=== PATIENT | female | born 1960 | race Caucasian/White ===

== ENCOUNTER → 2017-11-04 15:00 | Outpatient (CLI) | payer OTHER, SELFPAY ==
--- NOTE | 2017-11-04 | DI.MG.S_ITS ---
BILATERAL DIGITAL SCREENING MAMMOGRAM 3D/2D WITH CAD WITH AUGMENTATION: 11/04/2017 CLINICAL: Routine screening. Comparison is made to exams dated: 09/07/2016 mammogram, 08/27/2016 mammogram, and 06/19/2015 mammogram - [facility]. The tissue of both breasts is heterogeneously dense. This may lower the sensitivity of mammography. Current study was also evaluated with a Computer Aided Detection (CAD) system. There are biopsy clips in the left breast. Bilateral breast implants appear stable. No significant masses, calcifications, or other findings are seen in either breast. There has been no significant interval change. IMPRESSION: BENIGN There is no mammographic evidence of malignancy. A 1 year screening mammogram is recommended. This exam was interpreted at Station ID: [id number]. NOTE: For mammograms, a report in lay terms will be sent to the patient. Approximately 15% of breast malignancies will not be visualized mammographically. In the management of a palpable breast mass, a negative mammogram must not discourage biopsy of a clinically suspicious lesion. Electronically Signed By: Ozzy Gao M.D. ecl/:11/06/2017 23:03:50 letter sent: Normal Exam ACR BI-RADS Category 2: Benign Finding(s) 3342F
--- NOTE | 2017-11-04 15:02 | DI.US.S_ITS ---
PROCEDURE: US THYROID INDICATIONS: 1Y Repeat exam TECHNIQUE: Real-time scanning was performed of the thyroid gland, with image documentation. COMPARISON: [facility], US, THYROID, 06/21/2017, 16:09. FINDINGS: Right: Thyroid lobe measures 5.8 x 1.8 x 1.5 cm, and is homogeneous in echotexture. Left: Thyroid lobe measures 4.6 x 1.4 x 1.5 cm, and is homogenous in echotexture. Isthmus: 2.0 mm thick. Nodule number: 1 Location: Right superior Size: Unchanged at 0.5 x 0.3 x 0.4 cm. Composition: Cystic Echogenicity: Anechoic Shape: wider than tall. Margins: Smooth Echogenic foci: None Total points: 0 ACR TI-RADS category: Benign Nodule number: 2 Location: Mid left Size: Unchanged at 0.8 x 0.3 x 0.4 cm. Composition: Cystic Echogenicity: Anechoic Shape: wider than tall. 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 ACR TI-RADS definitions and recommendations: TI-RADS 1 (benign): 0 points. FNA not needed. TI-RADS 2 (not suspicious): 2 points. FNA not needed. TI-RADS 3 (mildly suspicious): 3 points. * FNA if 2.5 cm or larger, follow up if 1.5 cm or larger (at 1, 3, and 5 years). TI-RADS 4 (moderately suspicious): 4-6 points. * FNA if 1.5 cm or larger, follow up if 1 cm or larger (at 1, 2, 3, and 5 years). TI-RADS 5 (highly suspicious): 7 points or more. * FNA if 1 cm or larger, follow up if 0.5 cm or larger (every year for 5 years). Dictated by: Ty MCGILL Interpreted: Harsha Cole MD on 11/04/2017 at 16:25 Approved by: Harsha Cole M.D. on 11/04/2017 at 16:34
== END ==
PROVIDERS: Family Provider Physician Assistant; PCP Physician Assistant; Visit Provider Physician Assistant
DX: Z12.31 Encounter for screening mammogram for malignant neoplasm of breast (principal); E04.2 Nontoxic multinodular goiter
CPT/HCPCS: 76536; 77063; 77067

== ENCOUNTER → 2018-06-09 16:22 | Outpatient (CLI) | payer OTHER, SELFPAY ==
[2018-06-09 17:04] LABS: Alanine Aminotransferase 32 IU/L (9-52); Albumin 4.6 g/dL (3.5-5.0); Albumin Globulin Ratio 1.9 (1.0-2.8); Alkaline Phosphatase 40 U/L (38-126); Aspartate Aminotransferase 26 IU/L (14-36); Bilirubin Total 0.9 mg/dL (0.2-1.3); Blood Urea Nitrogen 20 mg/dL (7-17); Calcium 9.5 mg/dL (8.4-10.2); Carbon Dioxide 28 mmol/L (22-32); Chloride 101 mmol/L (98-107); Cholesterol 185 mg/dL (140-199); Estimated Glomerular Filt Rate > 60.0 mL/min (>60); Globulin 2.4 g/dL (1.7-4.1); Glucose 96 mg/dL (70-100); HDL Cholesterol 86 mg/dL (40-60); HEMOLYSIS 19 (0-50); LDL Cholesterol Calculated 60 mg/dL (<100); Potassium 4.1 mmol/L (3.4-5.1); Sodium 138 mmol/L (137-145); Triglycerides 196 mg/dL (35-150)
[2018-06-09 17:34] LABS: Thyroid Stimulating Hormone 2.36 uIU/mL (0.47-4.68)
== END ==
PROVIDERS: Family Provider Physician Assistant; PCP Physician Assistant; Visit Provider Physician Assistant
DX: R94.6 Abnormal results of thyroid function studies (principal); Z13.220 Encounter for screening for lipoid disorders; Z13.6 Encounter for screening for cardiovascular disorders
CPT/HCPCS: 36415; 80053; 80061; 84443

== ENCOUNTER → 2018-07-10 10:43 | Outpatient (CLI) | payer OTHER, SELFPAY ==
[2018-07-10 12:59] LABS: Vitamin D 25 Hydroxy (D3) 39.7 ng/mL (30.0-100.0)
[2018-07-10 13:04] LABS: Free T3, Triiodothyronine Free 3.78 pg/mL (2.77-5.27); Free T4, Direct Thyroxine 0.87 ng/dL (0.78-2.19); T4 Total Thyroxine 5.69 ug/dL (5.5-11.0); T7 (Free Thyroxine Index) 1.98 (1.65-3.89); Triiodothryronine T3 Uptake 34.8 % (23.5-40.5)
[2018-07-10 13:17] LABS: Thyroid Stimulating Hormone 1.23 uIU/mL (0.47-4.68)
[2018-07-10 13:20] LABS: Ferritin 19.9 ng/mL (11.1-264)
[2018-07-10 13:33] LABS: Vitamin B12 517 pg/mL (239-931)
[2018-07-12 13:12] LABS: RPR Screen Nonreactive (Nonreactive)
[2018-07-12 15:52] LABS: Triiodothyronine T3 Total 79 ng/dL (76-181)
== END ==
PROVIDERS: Family Provider Physician Assistant; PCP Physician Assistant; Visit Provider Internal Medicine
DX: R41.3 Other amnesia (principal); L65.9 Nonscarring hair loss, unspecified
CPT/HCPCS: 36415; 82306; 82607; 82728; 84436; 84439; 84443; 84479; 84480; 84481; 86592

== ENCOUNTER → 2019-01-16 16:07 | Outpatient (CLI) | payer OTHER, SELFPAY ==
--- NOTE | 2019-01-16 | DI.MG.S_ITS ---
BILATERAL DIGITAL SCREENING MAMMOGRAM 3D/2D WITH CAD WITH AUGMENTATION: 01/16/2019 CLINICAL: Routine screening. Comparison is made to exams dated: 11/04/2017 mammogram, 08/27/2016 mammogram, 06/19/2015 mammogram, 03/20/2014 mammogram, 07/05/2013 mammogram, and 06/07/2012 mammogram - [facility]. The tissue of both breasts is heterogeneously dense. This may lower the sensitivity of mammography. Current study was also evaluated with a Computer Aided Detection (CAD) system. Bilateral breast implants are stable. There are biopsy clips in the left breast. No significant masses, calcifications, or other findings are seen in either breast. There has been no significant interval change. IMPRESSION: NEGATIVE There is no mammographic evidence of malignancy. A 1 year screening mammogram is recommended. This exam was interpreted at Station ID: [id number]. NOTE: For mammograms, a report in lay terms will be sent to the patient. Approximately 15% of breast malignancies will not be visualized mammographically. In the management of a palpable breast mass, a negative mammogram must not discourage biopsy of a clinically suspicious lesion. Electronically Signed By: Morro schaefer/kristine:01/16/2019 18:56:42 letter sent: Normal Exam ACR BI-RADS Category 1: Negative 3341F
== END ==
PROVIDERS: PCP Physician Assistant; Visit Provider Physician Assistant
DX: Z12.31 Encounter for screening mammogram for malignant neoplasm of breast (principal)
CPT/HCPCS: 77063; 77067

== ENCOUNTER → 2020-03-10 19:49 | Outpatient (ROUT) | payer BC, SELFPAY ==
[2020-03-10 20:04] LABS: Add Manual Diff / Slide Review NO; Basophils Absolute Auto 0 /uL (0-100); Basophils Percent Auto 0.7 % (0-2); Eosinophils Absolute Auto 0 /uL (0-450); Eosinophils Percent Auto 0.5 % (2-4); Hematocrit 40.4 % (36-46); Hemoglobin 13.2 g/dL (12.0-16.0); Lymphocytes Absolute Auto 1900 /uL (1100-4500); Mean Corpuscular HGB Conc 32.7 % (30-36); Mean Corpuscular Hemoglobin 32.3 PG (26-34); Mean Corpuscular Volume 98.8 fL (80-100); Monocytes Absolute Auto 600 /uL (0-900); Monocytes Percent Auto 10.4 % (3-14); Neutrophils Absolute Auto 3600 /uL (1500-7000); Neutrophils Percent Auto 57.4 % (50-75); Platelet Count 210 X10^3/uL (150-400); Red Blood Cell Count 4.09 X10^6/uL (4.0-5.2); Red Cell Distribution Width 12.4 % (11.6-14.8); White Blood Cell Count 6.2 X10^3/uL (4.5-11.0)
[2020-03-10 20:05] LABS: HEMOLYSIS < 15 (0-50); Iron 77 ug/dL (37-170)
[2020-03-10 20:17] LABS: Percent Iron Saturation 23 % (15-50); Total Iron Binding Capacity 340 ug/dL (265-497); Transferrin 279 mg/dL (206-381)
[2020-03-10 20:42] LABS: Ferritin 29 ng/mL (11-264)
== END ==
PROVIDERS: PCP Physician Assistant; Visit Provider Internal Medicine
DX: E61.1 Iron deficiency (principal)
CPT/HCPCS: 82728; 83540; 83550; 85025

== ENCOUNTER → 2020-03-13 16:20 | Outpatient (CLI) | payer BC, SELFPAY ==
--- NOTE | 2020-03-13 | DI.MG.S_ITS ---
BILATERAL DIGITAL SCREENING MAMMOGRAM 3D/2D WITH CAD WITH AUGMENTATION: 03/13/2020 CLINICAL: Routine screening. Comparison is made to exams dated: 01/16/2019 mammogram, 11/04/2017 mammogram, and 08/27/2016 mammogram - [facility]. The tissue of both breasts is heterogeneously dense. This may lower the sensitivity of mammography. Current study was also evaluated with a Computer Aided Detection (CAD) system. Bilateral breast implants are stable. There are biopsy clips in the left breast. No significant masses, calcifications, or other findings are seen in either breast. There has been no significant interval change. IMPRESSION: NEGATIVE There is no mammographic evidence of malignancy. A 1 year screening mammogram is recommended. This exam was interpreted at Station ID: [id number]. NOTE: For mammograms, a report in lay terms will be sent to the patient. Approximately 15% of breast malignancies will not be visualized mammographically. In the management of a palpable breast mass, a negative mammogram must not discourage biopsy of a clinically suspicious lesion. Electronically Signed By: Alvin Kolb acr/penrad:03/13/2020 17:13:42 letter sent: Normal Exam ACR BI-RADS Category 1: Negative 3341F
== END ==
PROVIDERS: PCP Internal Medicine; Referring Provider Internal Medicine; Visit Provider Internal Medicine
DX: Z12.31 Encounter for screening mammogram for malignant neoplasm of breast (principal)
CPT/HCPCS: 77063; 77067

== ENCOUNTER → 2020-07-12 12:21 | Outpatient (CLI) | payer BC, SELFPAY ==
[2020-07-12 12:57] LABS: Hematocrit 39.8 % (36-46); Hemoglobin 13.5 g/dL (12.0-16.0); Mean Corpuscular HGB Conc 33.8 % (30-36); Mean Corpuscular Hemoglobin 33.2 PG (26-34); Mean Corpuscular Volume 98.3 fL (80-100); Platelet Count 210 X10^3/uL (150-400); Red Blood Cell Count 4.05 X10^6/uL (4.0-5.2); Red Cell Distribution Width 12.7 % (11.6-14.8); White Blood Cell Count 5.7 X10^3/uL (4.5-11.0)
[2020-07-12 13:08] LABS: Alanine Aminotransferase 18 IU/L (<35); Albumin 4.6 g/dL (3.5-5.0); Albumin Globulin Ratio 1.6 (1.0-2.8); Alkaline Phosphatase 58 U/L (38-126); Aspartate Aminotransferase 28 IU/L (14-36); BUN Creatinine Ratio 21.1 (6-22); Bilirubin Total 0.9 mg/dL (0.2-1.3); Blood Urea Nitrogen 16 mg/dL (7-17); Calcium 9.7 mg/dL (8.4-10.2); Carbon Dioxide 27 mmol/L (22-32); Chloride 104 mmol/L (98-107); Cholesterol 212 mg/dL (140-199); Estimated Glomerular Filt Rate > 60.0 mL/min (>60); Globulin 2.8 g/dL (1.7-4.1); Glucose 102 mg/dL (80-110); HDL Cholesterol 84 mg/dL (40-60); HEMOLYSIS < 15 (0-50); LDL Cholesterol Calculated 113 mg/dL (<100); Potassium 4.3 mmol/L (3.4-5.1); Sodium 139 mmol/L (137-145); Total Protein 7.4 g/dL (6.3-8.2); Triglycerides 73 mg/dL (35-150)
[2020-07-12 13:25] LABS: Free T4, Direct Thyroxine 0.83 ng/dL (0.78-2.19)
[2020-07-12 13:39] LABS: Thyroid Stimulating Hormone 1.19 uIU/mL (0.47-4.68)
[2020-07-12 13:56] LABS: Vitamin B12 849 pg/mL (239-931)
[2020-07-12 15:38] LABS: Vitamin D 25 Hydroxy (D3) 50.6 ng/mL (30.0-100.0)
== END ==
PROVIDERS: PCP Nurse Practitioner Family; Referring Provider Nurse Practitioner Family; Visit Provider Nurse Practitioner Family
DX: R41.3 Other amnesia (principal); Z13.6 Encounter for screening for cardiovascular disorders; E55.9 Vitamin D deficiency, unspecified
CPT/HCPCS: 36415; 80053; 80061; 82306; 82607; 84439; 84443; 85027

== ENCOUNTER → 2021-01-21 15:24 | Outpatient (CLI) | payer BC, SELFPAY ==
--- NOTE | 2021-01-21 15:26 | DI.RAD.S_ITS ---
PROCEDURE: XR PELVIS 1-2V INDICATIONS: pubic bone left side pain TECHNIQUE: 1 view(s) of the pelvis acquired. COMPARISON: None. FINDINGS: Bones: No fractures or dislocations. No suspicious bony lesions. Soft tissues: Visualized bowel gas pattern is normal. No suspicious soft tissue calcifications. IMPRESSION: No evidence acute bony abnormality of the pelvis. If clinical suspicion and/or symptoms persist, further assessment with repeat plain films, or advanced imaging (e.g., CT, MRI, or bone scan) may be helpful for further assessment. Dictated by: Sai Morgan M.D. on 01/21/2021 at 16:03 Approved by: Sai Morgan M.D. on 01/21/2021 at 16:03
[2021-01-21 17:11] LABS: Hematocrit 40.4 % (36-46); Hemoglobin 13.4 g/dL (12.0-16.0); Mean Corpuscular HGB Conc 33.2 % (30-36); Mean Corpuscular Hemoglobin 32.7 PG (26-34); Mean Corpuscular Volume 98.4 fL (80-100); Platelet Count 220 X10^3/uL (150-400); Red Cell Distribution Width 12.9 % (11.6-14.8); White Blood Cell Count 5.9 X10^3/uL (4.5-11.0)
[2021-01-21 17:36] LABS: Alanine Aminotransferase 19 IU/L (<35); Albumin 4.6 g/dL (3.5-5.0); Albumin Globulin Ratio 1.6 (1.0-2.8); Alkaline Phosphatase 53 U/L (38-126); Aspartate Aminotransferase 26 IU/L (14-36); BUN Creatinine Ratio 18.8 (6-22); Bilirubin Total 0.9 mg/dL (0.2-1.3); Blood Urea Nitrogen 16 mg/dL (7-17); Calcium 9.4 mg/dL (8.4-10.2); Carbon Dioxide 29 mmol/L (22-32); Chloride 103 mmol/L (98-107); Estimated Glomerular Filt Rate > 60.0 mL/min (>60); Globulin 2.8 g/dL (1.7-4.1); Glucose 98 mg/dL (80-110); HEMOLYSIS < 15 (0-50); Potassium 3.9 mmol/L (3.4-5.1); Sodium 141 mmol/L (137-145); Total Protein 7.4 g/dL (6.3-8.2)
[2021-01-21 18:35] LABS: Free T4, Direct Thyroxine 0.82 ng/dL (0.78-2.19)
[2021-01-21 18:49] LABS: Thyroid Stimulating Hormone 1.94 uIU/mL (0.47-4.68)
== END ==
PROVIDERS: PCP Nurse Practitioner Family; Referring Provider Nurse Practitioner Family; Visit Provider Nurse Practitioner Family
DX: M89.9 Disorder of bone, unspecified (principal); L65.9 Nonscarring hair loss, unspecified; R63.5 Abnormal weight gain; R94.6 Abnormal results of thyroid function studies
CPT/HCPCS: 36415; 72170; 80053; 84439; 84443; 85027

== ENCOUNTER → 2021-07-31 10:57 | Outpatient (CLI) | payer BC, SELFPAY ==
--- NOTE | 2021-07-31 10:58 | DI.US.S_ITS ---
PROCEDURE: US PELVIC COMPLETE INDICATIONS: PELVIC AND PERINEAL PAIN TECHNIQUE: Real-time scanning was performed of the pelvic organs, with image documentation. Additional endovaginal scanning was necessary due to incomplete visualization of the adnexal and endometrial structures by transabdominal scanning. COMPARISON: None. FINDINGS: Uterus: Uterus is anteverted and normal in size at 8.6 x 4.7 x 3.9 cm. The myometrium is heterogeneous with multiple areas of calcification in the cervix and lower uterine segment. The endometrium measures 6.3 mm combined thickness. Ovaries: The right ovary measures 1.8 x 1.6 x 1.2 cm. Right ovary is normal sonographic appearance. The left ovary is not visualized and cannot be evaluated. Other: No pathologic free abdominal or pelvic fluid. IMPRESSION: 1. Heterogeneous uterus with calcifications in the cervix and lower uterine segment. Recommend correlation with physical examination of the cervix and if clinically indicated MRI of the pelvis for additional evaluation. 2. Right ovary sonographically normal. 3. Left ovary not visualized and cannot be evaluated. Dictated by: Janice Hannon MD, PhD on 07/31/2021 at 14:08 Approved by: Janice Hannon MD, PhD on 07/31/2021 at 14:24
== END ==
PROVIDERS: PCP Nurse Practitioner Family; Referring Provider Obstetrics & Gynecology; Visit Provider Obstetrics & Gynecology
DX: R10.2 Pelvic and perineal pain (principal)
CPT/HCPCS: 76856

== ENCOUNTER → 2021-12-26 09:54 | Outpatient (CLI) | payer BC, SELFPAY ==
--- NOTE | 2021-12-26 | DI.MG.S_ITS ---
BILATERAL DIGITAL SCREENING MAMMOGRAM 3D/2D WITH CAD WITH AUGMENTATION: 12/26/2021 CLINICAL: Patient presents for routine screening. S/P bilateral augmentation. Comparison is made to exams dated: 03/13/2020 mammogram, 01/16/2019 mammogram, and 11/04/2017 mammogram - [facility]. Both breasts are heterogeneously dense, which may obscure small masses (category c / 51-75% glandular tissue). Current study was also evaluated with a Computer Aided Detection (CAD) system. Bilateral breast implants are stable. There are biopsy clips in the left breast. No significant masses, calcifications, or other findings are seen in either breast. There has been no significant interval change. IMPRESSION: NEGATIVE There is no mammographic evidence of malignancy. A 1 year screening mammogram is recommended. Based on the Tyrer Cuzick model (a risk assessment model) the patient's lifetime risk is 10.7% and her 10 year risk is 4.8%. According to the ACR, ACS, and NCCN guidelines, an annual breast MRI exam along with mammogram is recommended if the patient's lifetime risk is 20% or greater. This exam was interpreted at Station ID: [id number]. NOTE: For mammograms, a report in lay terms will be sent to the patient. Approximately 15% of breast malignancies will not be visualized mammographically. In the management of a palpable breast mass, a negative mammogram must not discourage biopsy of a clinically suspicious lesion. Electronically Signed By: Eliezer romero/kristine:12/28/2021 08:26:20 letter sent: Normal Exam ACR BI-RADS Category 1: Negative 3341F
== END ==
PROVIDERS: PCP Nurse Practitioner Family; Referring Provider Nurse Practitioner Family; Visit Provider Nurse Practitioner Family
DX: Z12.31 Encounter for screening mammogram for malignant neoplasm of breast (principal); Z98.82 Breast implant status
CPT/HCPCS: 77063; 77067

== ENCOUNTER 2022-06-02 16:27 | Emergency (ER) | payer BC, SELFPAY ==
[2022-06-02] VITALS (12 sets, daily range): BP systolic 133–182; BP diastolic 68–92; PULSE 52–71; RESP 12–31; TEMP 37; O2SAT 96–100; BMI 24.2
--- NOTE | 2022-06-02 16:54 | DI.RAD.S_ITS ---
PROCEDURE: XR CHEST 1V INDICATIONS: chest pain TECHNIQUE: One view of the chest was acquired. COMPARISON: [facility], , CHEST 2 VIEW, 08/08/2015, 4:26. FINDINGS: Surgical changes and devices: None. Lungs and pleura: Lungs are clear. No pleural effusions or pneumothorax. Mediastinum: Mediastinal contours appear normal. Heart size is normal. Bones and chest wall: No suspicious bony lesions. Overlying soft tissues appear unremarkable. IMPRESSION: No acute cardiopulmonary abnormality. Dictated by: Alvin Kolb M.D. on 06/02/2022 at 17:45 Approved by: Alvin Kolb M.D. on 06/02/2022 at 17:45
[2022-06-02 17:24] LABS: INR 0.9 (0.9-1.3); Prothrombin Time 10.6 SECONDS (10.1-12.7)
[2022-06-02 17:26] LABS: Add Manual Diff / Slide Review NO; Basophils Absolute Auto 100 /uL (0-100); Basophils Percent Auto 0.7 % (0-2); Eosinophils Absolute Auto 100 /uL (0-450); Eosinophils Percent Auto 1.3 % (2-4); Hemoglobin 13.4 g/dL (12.0-16.0); Lymphocytes Absolute Auto 1900 /uL (1100-4500); Lymphocytes Percent Auto 26.3 % (25-40); Mean Corpuscular HGB Conc 33.6 % (30-36); Mean Corpuscular Hemoglobin 33.5 PG (26-34); Mean Corpuscular Volume 99.6 fL (80-100); Monocytes Absolute Auto 800 /uL (0-900); Monocytes Percent Auto 11.1 % (3-14); Neutrophils Absolute Auto 4400 /uL (1500-7000); Neutrophils Percent Auto 60.6 % (50-75); Platelet Count 206 X10^3/uL (150-400); Red Blood Cell Count 4.01 X10^6/uL (4.0-5.2); White Blood Cell Count 7.3 X10^3/uL (4.5-11.0)
[2022-06-02 17:27] LABS: PTT Partial Thromboplastin Tim 28 SECONDS (26-36)
[2022-06-02 17:32] LABS: Alanine Aminotransferase 22 IU/L (<35); Albumin 4.6 g/dL (3.5-5.0); Albumin Globulin Ratio 1.5 (1.0-2.8); Alkaline Phosphatase 33 U/L (38-126); Aspartate Aminotransferase 25 IU/L (14-36); Blood Urea Nitrogen 20 mg/dL (7-17); Carbon Dioxide 28 mmol/L (22-32); Chloride 101 mmol/L (98-107); Creatine Kinase 89 U/L (30-135); Estimated Glomerular Filt Rate > 60 mL/min (>60); Glucose 114 mg/dL (80-110); HEMOLYSIS < 15 (0-50); Lipase 74 U/L (23-300); Potassium 3.6 mmol/L (3.4-5.1); Sodium 136 mmol/L (137-145); Total Protein 7.6 g/dL (6.3-8.2)
[2022-06-02 17:43] LABS: Troponin I < 0.012 ng/mL (0.01-0.034)
--- NOTE | 2022-06-02 17:50 | ED_ITS ---
HPI - Chest Pain <Brianna Mcginnis PA-C - Last Filed: 06/02/22 19:55> General Chief Complaint: Chest Pain Stated Complaint: PAIN FRONT TO BACK Time Seen by Provider: 06/02/22 17:22 Source: patient Mode of arrival: Family Vehicle Limitations: no limitations History of Present Illness HPI narrative: 61-year-old female history of postmenopausal bleeding, seen by sde presents with concern for pain radiating from her upper flank/ back to her front on the right side. Patient states that yesterday morning around the time she woke up she noticed some pain which she thought at 1st was on the left side of her neck and then throughout the day she noticed pain at the base of her scapula on the right side, but did not continue to have neck discomfort. She states that this pain radiates from the scapula through the front of her chest towards her belly. She states it is a constant pain she is difficulty describing it but says that it is worse with certain movements and it makes her catch her breath. She feels like it has been hard to breathe a little bit at times because of the pain. She has not tried taking anything at home for the pain. She denies any history of similar. She states she has not done any different physical activities, lifting or had any other recent illness, change in routine or other symptoms. She denies chest pain, persistent shortness of breath, weight gain, dysuria, diarrhea or constipation, abdominal pain, fevers, chills or any other symptoms. Related Data Home Medications Medication Instructions Recorded Confirmed cholecalciferol (vitamin D3) 125 125 mcg PO DAILY 06/25/20 05/24/22 mcg (5,000 unit) capsule multivitamin 1 tab PO DAILY 06/25/20 05/24/22 Previous Rx's Medication Instructions Recorded lidocaine HCl 2 % mucosal solution 1 applic mucous membrane TID PRN 01/06/21 (Lidocaine Viscous) pain #100 mL valacyclovir 1 gram tablet 1,000 mg PO DAILY #90 tabs 01/06/21 valacyclovir 500 mg tablet 500 mg PO TID #60 tabs 01/06/21 estradiol 0.5 mg tablet 0.5 mg PO DAILY menopause #30 tabs 04/09/21 progesterone micronized 100 mg 100 mg PO QAM menopause 30 days 04/09/21 capsule #30 caps baclofen 10 mg tablet 10 mg PO TID muscle spasm 10 days 06/02/22 #30 tabs Allergies Allergy/AdvReac Type Severity Reaction Status Date / Time morphine [MORPHINE] Allergy Severe A STREAK Verified 06/02/22 16:55 GOING UP MY ARM WHERE THEY INJECTED ME SULFA Allergy Mild ITCHY RASH Uncoded 06/02/22 16:55 ALL OVER BODY Review of Systems <Brianna Mcginnis PA-C - Last Filed: 06/02/22 19:55> Review of Systems Narrative: See HPI Patient History <Brianna Mcginnis PA-C - Last Filed: 06/02/22 19:55> Medical History Depression (2018) Genital herpes Hair loss Memory loss (2018) Menopause Neck muscle strain (04/2020) Pubic bone pain Vitamin D deficiency Surgical History History of breast augmentation History of third molar tooth extraction Status post delivery Family History Brother Hypertension Brother Hypertension Father Heart disease Mother Lung cancer Smoker Social History Smoking Status: Never smoker second hand exposure: No alcohol intake: current (a glass of red wine about 5 times a week.) substance use type: does not use Smoking Status: Never smoker alcohol intake frequency: 0-2 drinks per day Alcohol type: wine Substance Use Type: does not use Exam <Brianna Mcginnis PA-C - Last Filed: 06/02/22 19:55> Narrative Exam Narrative: GENERAL: 61 year old patient appears stated age. Well-developed patient, in mild distress, slightly anxious, uncomfortable appearing. HEAD: Atraumatic. Normocephalic. EYES: Pupils equal round and reactive. Extraocular motions intact. No scleral icterus. No injection or drainage. ENT: Nose without bleeding, purulent drainage. Throat without erythema, tonsillar hypertrophy or exudate. Airway patent. NECK: Trachea midline. Non tender CARDIOVASCULAR: Regular rate and rhythm without murmurs, gallops, or rubs. RESPIRATORY: Clear to auscultation. Breath sounds equal bilaterally. No wheezes, rales, or rhonchi. GASTROINTESTINAL: Abdomen soft, non-tender, nondistended, negative Strauss's sign, negative McBurney's point tenderness, negative Rovsing. EXTREMITIES: No edema or joint tenderness. BACK: Patient does have tenderness inferior to the scapula, no CVA tenderness noted however she has tenderness with palpation of the right mid paraspinal muscle, intercostal and states that this pain radiates forward towards her belly. Muscles in the region are tight. Otherwise Nontender without deformity or crepitance. No flank tenderness. NEURO: AOx3. SKIN: No rash or erythema of visible areas Initial Vital Signs Initial Vital Signs: Vital Signs Temperature 98.6 F 06/02/22 16:47 Pulse Rate 67 06/02/22 16:47 Respiratory Rate 18 06/02/22 16:47 Blood Pressure 173/92 H 06/02/22 16:47 Pulse Oximetry 100 06/02/22 16:47 Oxygen Delivery Method Room Air 06/02/22 16:47 <DO Rosey Urbina Last Filed: 06/03/22 03:05> Initial Vital Signs Initial Vital Signs: Vital Signs Temperature 98.6 F 06/02/22 16:47 Pulse Rate 67 06/02/22 16:47 Respiratory Rate 18 06/02/22 16:47 Blood Pressure 173/92 H 06/02/22 16:47 Pulse Oximetry 100 06/02/22 16:47 Oxygen Delivery Method Room Air 06/02/22 16:47 Scores <Brianna Mcginnis PA-C - Last Filed: 06/02/22 19:55> HEART Score Heart Score history: Slightly Suspicious Heart Score EKG: Normal Heart Score Age: 45-64 years old Heart Score risk factors: No known risk factors Heart Score troponin: < or = to normal limit Heart Score Total: 1 <DO Rosey Urbina Last Filed: 06/03/22 03:05> HEART Score Heart Score Total: 1 Course <YUNI Ann Last Filed: 06/02/22 19:55> Course Course Narrative: Despite attending physician Dr. Soni about this patient, discussed imaging options, CT KUB 1830 Orders Ordered: ED Orders 06/02/22 18:34 CT kidney ureter bladder (KUB) Stat Discontinued Medications Aspirin (Aspirin 81 Mg Chew Tab) 324 mg PO NOW ONE Stop: 06/02/22 16:55 Last Admin: 06/02/22 20:10 Dose: Not Given Documented By: ISAC Ketorolac Tromethamine (Ketorolac 30 Mg/Ml Vial) 15 mg IV NOW ONE Stop: 06/02/22 18:11 Last Admin: 06/02/22 18:16 Dose: 15 mg Documented By: AT Vital Signs Vital signs: Vital Signs - 8 hr 06/02/22 19:32 06/02/22 19:34 06/02/22 19:34 Pulse Rate 58 L 52 L Respiratory Rate 24 12 Blood Pressure 156/83 H Pulse Oximetry 99 99 06/02/22 20:00 06/02/22 20:00 Pulse Rate 60 Respiratory Rate 27 H Blood Pressure 159/89 H Pulse Oximetry 98 <Xavier Soni DO - Last Filed: 06/03/22 03:05> Orders Ordered: ED Orders 06/02/22 18:34 CT kidney ureter bladder (KUB) Stat Discontinued Medications Aspirin (Aspirin 81 Mg Chew Tab) 324 mg PO NOW ONE Stop: 06/02/22 16:55 Last Admin: 06/02/22 20:10 Dose: Not Given Documented By: ISAC Ketorolac Tromethamine (Ketorolac 30 Mg/Ml Vial) 15 mg IV NOW ONE Stop: 06/02/22 18:11 Last Admin: 06/02/22 18:16 Dose: 15 mg Documented By: AT Vital Signs Vital signs: Vital Signs - 8 hr 06/02/22 19:32 06/02/22 19:34 06/02/22 19:34 Pulse Rate 58 L 52 L Respiratory Rate 24 12 Blood Pressure 156/83 H Pulse Oximetry 99 99 06/02/22 20:00 06/02/22 20:00 Pulse Rate 60 Respiratory Rate 27 H Blood Pressure 159/89 H Pulse Oximetry 98 MDM - Chest Pain <Brianna Mcginnis PA-C - Last Filed: 06/02/22 19:55> Differential Diagnosis Differential diagnosis: Likely atypical chest pain, chest pain, biliary colic and other (Muscle spasm, kidney stone) Medical Records Data Attestation: I reviewed the patient's medical records. Lab Data Attestation: I reviewed the patient's lab results. 06/02/22 17:10 06/02/22 17:10 Labs: Lab Results 06/02/22 06/02/22 06/02/22 Range/Units 17:10 17:10 17:10 WBC 7.3 (4.5-11.0) X10^3/uL RBC 4.01 (4.0-5.2) X10^6/uL Hgb 13.4 (12.0-16.0) g/dL Hct 40.0 (36-46) % MCV 99.6 (80-100) fL MCH 33.5 (26-34) PG MCHC 33.6 (30-36) % RDW 13.0 (11.6-14.8) % Plt Count 206 (150-400) X10^3/uL Neut % (Auto) 60.6 (50-75) % Lymph % (Auto) 26.3 (25-40) % [place] % (Auto) 11.1 (3-14) % Eos % (Auto) 1.3 L (2-4) % Baso % (Auto) 0.7 (0-2) % Neut # (Auto) 4400 (5963-6785) /uL Lymph # (Auto) 1900 (3978-7693) /uL [place] # (Auto) 800 (0-900) /uL Eos # (Auto) 100 (0-450) /uL Baso # (Auto) 100 (0-100) /uL PT 10.6 (10.1-12.7) SECONDS INR 0.9 (0.9-1.3) APTT 28 (26-36) SECONDS Sodium 136 L (137-145) mmol/L Potassium 3.6 (3.4-5.1) mmol/L Chloride 101 (98-107) mmol/L Carbon Dioxide 28 (22-32) mmol/L BUN 20 H (7-17) mg/dL Creatinine 0.91 (0.52-1.04) mg/dL Estimated GFR > 60 (>60) mL/min BUN/Creatinine Ratio 22.0 (6-22) Glucose 114 H (80-110) mg/dL Calcium 9.0 (8.4-10.2) mg/dL Magnesium 2.0 (1.6-2.3) mg/dL Total Bilirubin 1.0 (0.2-1.3) mg/dL AST 25 (14-36) IU/L ALT 22 (<35) IU/L Alkaline Phosphatase 33 L (38-126) U/L Total Creatine Kinase 89 (30-135) U/L CK-MB (CK-2) TNP CK-MB (CK-2) Rel Index TNP Troponin I < 0.012 (0.01-0.034) ng/mL Total Protein 7.6 (6.3-8.2) g/dL Albumin 4.6 (3.5-5.0) g/dL Globulin 3.0 (1.7-4.1) g/dL Albumin/Globulin Ratio 1.5 (1.0-2.8) Lipase 74 (23-300) U/L Urine Dip Bedside Urine Glucose Negative Bedside Urine Bilirubin - Negative Bedside Urine Ketone - Negative Urine Specific [place] 1.010 Bedside Urine Occult Blood - Negative Bedside Urine pH 6.0 Bedside Urine Protein - Negative Bedside Urine Urobilinogen - Negative Bedside Urine Nitrite - Negative Bedside Urine Leukocytes - Negative Esterase Imaging Data Chest x-ray: My Impression: Agree with interpretation Radiologist's Impression: [address] [address] XRay Report Signed Patient: Shaista Mccormick MR#: [id number] : 1960 Acct:[id number] Age/Sex: 61 / F Date of Service: 06/02/22 Loc: ED Accession Number: [id number] ?? Procedure: XR chest 1V Ordering Provider: David Neville MD PROCEDURE:? XR CHEST 1V ? INDICATIONS:? chest pain ? TECHNIQUE:? One view of the chest was acquired.? ? COMPARISON:? , , CHEST 2 VIEW, 08/08/2015, 4:26. ? FINDINGS:? ? Surgical changes and devices:? None.? ? Lungs and pleura:? Lungs are clear.? No pleural effusions or pneumothorax.? ? Mediastinum:? Mediastinal contours appear normal.? Heart size is normal.? ? Bones and chest wall:? No suspicious bony lesions.? Overlying soft tissues appear unremarkable.? ? IMPRESSION:? No acute cardiopulmonary abnormality. ? ? ? Dictated by: Alvin Kolb M.D. on 06/02/2022 at 17:45 ? ? Approved by: Alvin Kolb M.D. on 06/02/2022 at 17:45?? CT scan - abdomen/pelvis: Radiologist's Impression: [address] [address] [address] Scan Report Signed Patient: Shaista Mccormick MR#: [id number] : 1960 Acct:[id number] Age/Sex: 61 / F Date of Service: 06/02/22 Loc: ED Accession Number: [id number] ?? Procedure: CT kidney ureter bladder (KUB) Ordering Provider: Brianna Mcginnis P.A-C PROCEDURE:? CT KIDNEY URETER BLADDER (KUB) ? INDICATIONS:? right flank pain ? TECHNIQUE:? Axial sections were acquired from the lung bases to the pubic symphysis.? Coronal and sagittal reformats were performed.? For radiation dose reduction, the following was used: ?automated exposure control, adjustment of mA and/or kV according to patient size.? ? COMPARISON:? None. ? FINDINGS: Image quality:? Excellent.? ? Lung bases:? Lung bases are clear.? Heart size is normal. ? Solid organs:? Liver: The liver has no mass or intrahepatic biliary ductal dilatation.? 1.1 centimeter hypodensity in the central liver consistent with a cyst.? Biliary: The gallbladder has no gallstones, pericholecystic fluid, gallbladder wall thickening, or surrounding inflammatory change. Pancreas: The pancreas has no mass or ductal dilatation. There is no surrounding inflammation. Spleen: Normal size. There are no masses. Adrenals: No hypertrophy or nodules. Kidneys: No obstructive calculus or hydronephrosis.? No solid mass. No cystic mass. ? Peritoneum and bowel:? The distal esophagus and stomach are normal.? The small bowel has a normal caliber and appearance. The terminal ileum is normal. The large bowel has a normal caliber and appearance.? The appendix is normal. No free fluid or air.? ? Nodes and vessels:? No retroperitoneal or mesenteric adenopathy by size criteria.? Aorta and inferior vena cava are normal in size.? ? Miscellaneous:? No abdominal wall mass or hernia. ? PELVIS:? Genitourinary:? The bladder has no wall thickening or mass. No bladder calcifications. ? Bones:? Degenerative changes with no focal abnormality.? Leftward curvature of the lumbar spine.? No vertebral body compression fractures.? ? IMPRESSION: 1. No acute abdominal or pelvic abnormality. 2. No kidney stone.? ? ? Dictated by: Alvin Kolb M.D. on 06/02/2022 at 19:02 ? ? Approved by: Alvin Kolb M.D. on 06/02/2022 at 19:06?? ECG Data Attestation: I personally reviewed and interpreted this ECG as follows: Interpretation: Heart rate 69, normal sinus rhythm with sinus arrhythmia, no ectopy or ST changes noted, T-wave inversions V1 V2. Also reviewed by Dr Neville Treatment and disposition Shared decision making:: Shared decision-making was used indeterminate this patient's plan of care in the emergency department. MDM Narrative Medical decision making narrative: This is a generally well-appearing 61-year-old female hx of postmenopausal bleeding, who presents with concern for possible chest pain. With right upper flank pain subscapular radiating towards her anterior chest/belly since yesterday that has been gradually worsening. Patient has a heart score of 1 Pain is worse with movement and strong suspicion for musculoskeletal problem, exam is consistent with muscle spasms however given patient's age and description of the pain radiating CT KUB is obtained for further evaluation. Patient does receive Toradol IV. Labs generally returned unremarkable, given duration of symptoms, repeat troponin is not obtained. Her chest x-ray is also unremarkable. UA is not suggestive of UTI, unremarkable, CT KUB returns without evidence of stone or other notable finding. Patient is discharged with prescription for muscle relaxer, advised Tylenol ibuprofen, symptomatic treatment trying heat or ice. Return precautions provided, follow-up plan discussed, all questions a nswered. <Xavier Soni, - Last Filed: 06/03/22 03:05> Lab Data Labs: Lab Results 06/02/22 06/02/22 06/02/22 Range/Units 17:10 17:10 17:10 WBC 7.3 (4.5-11.0) X10^3/uL RBC 4.01 (4.0-5.2) X10^6/uL Hgb 13.4 (12.0-16.0) g/dL Hct 40.0 (36-46) % MCV 99.6 (80-100) fL MCH 33.5 (26-34) PG MCHC 33.6 (30-36) % RDW 13.0 (11.6-14.8) % Plt Count 206 (150-400) X10^3/uL Neut % (Auto) 60.6 (50-75) % Lymph % (Auto) 26.3 (25-40) % [place] % (Auto) 11.1 (3-14) % Eos % (Auto) 1.3 L (2-4) % Baso % (Auto) 0.7 (0-2) % Neut # (Auto) 4400 (0602-9732) /uL Lymph # (Auto) 1900 (4651-4712) /uL [place] # (Auto) 800 (0-900) /uL Eos # (Auto) 100 (0-450) /uL Baso # (Auto) 100 (0-100) /uL PT 10.6 (10.1-12.7) SECONDS INR 0.9 (0.9-1.3) APTT 28 (26-36) SECONDS Sodium 136 L (137-145) mmol/L Potassium 3.6 (3.4-5.1) mmol/L Chloride 101 (98-107) mmol/L Carbon Dioxide 28 (22-32) mmol/L BUN 20 H (7-17) mg/dL Creatinine 0.91 (0.52-1.04) mg/dL Estimated GFR > 60 (>60) mL/min BUN/Creatinine Ratio 22.0 (6-22) Glucose 114 H (80-110) mg/dL Calcium 9.0 (8.4-10.2) mg/dL Magnesium 2.0 (1.6-2.3) mg/dL Total Bilirubin 1.0 (0.2-1.3) mg/dL AST 25 (14-36) IU/L ALT 22 (<35) IU/L Alkaline Phosphatase 33 L (38-126) U/L Total Creatine Kinase 89 (30-135) U/L CK-MB (CK-2) TNP CK-MB (CK-2) Rel Index TNP Troponin I < 0.012 (0.01-0.034) ng/mL Total Protein 7.6 (6.3-8.2) g/dL Albumin 4.6 (3.5-5.0) g/dL Globulin 3.0 (1.7-4.1) g/dL Albumin/Globulin Ratio 1.5 (1.0-2.8) Lipase 74 (23-300) U/L Urine Dip Bedside Urine Glucose Negative Bedside Urine Bilirubin - Negative Bedside Urine Ketone - Negative Urine Specific [place] 1.010 Bedside Urine Occult Blood - Negative Bedside Urine pH 6.0 Bedside Urine Protein - Negative Bedside Urine Urobilinogen - Negative Bedside Urine Nitrite - Negative Bedside Urine Leukocytes - Negative Esterase Discharge Plan Departure Patient Disposition: Home Clinical Impression: Right subscapular pain, Muscle spasm Instructions: DI for Atypical Chest Pain, DI for Muscle Spasm Activity Restrictions/Additional Instructions: Thank you for letting us be part of your care today in the emergency department. We evaluated you for possible cardiac source of your pain and respiratory. Our evaluation was looking good today, chest x-ray looked okay as well as your labs and we also did a CT scan to further evaluate your belly and back given possible concern for kidney stone because of the nature of her pain and location of it. However nothing was found. Your exam was very consistent with a muscle spasm and I think that this is likely the cause of your discomfort. I have prescribed a muscle relaxer for you I encouraged Tylenol, ibuprofen, heat and or ice for treatment of your symptoms. Of course if you have new or worsening symptoms or failure not improving with these medications and rest do not he sitate to seek re-evaluation. There is no evidence of an emergent or life threatening illness at this time, but follow up with your doctor in 1-2 days is recommended nonetheless to continue to rule out serious underlying causes of your symptoms. Please call the office for an appointment. Please return to the Emergency Department for any worsening or persistent symptoms. Please take medications as directed. Prescriptions: New baclofen 10 mg tablet 10 mg PO TID 10 Days Qty: 30 1RF No Action estradiol 0.5 mg tablet 0.5 mg PO DAILY Qty: 30 6RF Rx Instructions: Take once daily. progesterone micronized 100 mg capsule 100 mg PO QAM 30 Days Qty: 30 6RF Rx Instructions: Take once daily. multivitamin Tablet 1 tab PO DAILY cholecalciferol (vitamin D3) 125 mcg (5,000 unit) capsule 125 mcg PO DAILY valacyclovir 1 gram tablet 1,000 mg PO DAILY Qty: 90 2RF lidocaine HCl [Lidocaine Viscous] 2 % solution 1 applic mucous membrane TID PRN (Reason: pain) Qty: 100 0RF Rx Instructions: use sparingly for pain valacyclovir 500 mg tablet 500 mg PO TID Qty: 60 0RF Rx Instructions: take one tablet 3 times a day for three days for flare Stand Alone Forms: Patient Portal/API <Xavier Soni DO - Last Filed: 06/03/22 03:05> Cosign ED Attending Ericaature Attestation: I was immediately available in the department for consultation. This documentation has been reviewed and I agree with assessment and plan. Supervised by Xavier Soni DO
[2022-06-02] MEDS: KETOROLAC 30 MG/ML VIAL 15 MG IV (18:16)
--- NOTE | 2022-06-02 18:34 | DI.CT.S_ITS ---
PROCEDURE: CT KIDNEY URETER BLADDER (KUB) INDICATIONS: right flank pain TECHNIQUE: Axial sections were acquired from the lung bases to the pubic symphysis. Coronal and sagittal reformats were performed. For radiation dose reduction, the following was used: automated exposure control, adjustment of mA and/or kV according to patient size. COMPARISON: None. FINDINGS: Image quality: Excellent. Lung bases: Lung bases are clear. Heart size is normal. Solid organs: Liver: The liver has no mass or intrahepatic biliary ductal dilatation. 1.1 centimeter hypodensity in the central liver consistent with a cyst. Biliary: The gallbladder has no gallstones, pericholecystic fluid, gallbladder wall thickening, or surrounding inflammatory change. Pancreas: The pancreas has no mass or ductal dilatation. There is no surrounding inflammation. Spleen: Normal size. There are no masses. Adrenals: No hypertrophy or nodules. Kidneys: No obstructive calculus or hydronephrosis. No solid mass. No cystic mass. Peritoneum and bowel: The distal esophagus and stomach are normal. The small bowel has a normal caliber and appearance. The terminal ileum is normal. The large bowel has a normal caliber and appearance. The appendix is normal. No free fluid or air. Nodes and vessels: No retroperitoneal or mesenteric adenopathy by size criteria. Aorta and inferior vena cava are normal in size. Miscellaneous: No abdominal wall mass or hernia. PELVIS: Genitourinary: The bladder has no wall thickening or mass. No bladder calcifications. Bones: Degenerative changes with no focal abnormality. Leftward curvature of the lumbar spine. No vertebral body compression fractures. IMPRESSION: 1. No acute abdominal or pelvic abnormality. 2. No kidney stone. Dictated by: Alvin Kolb M.D. on 06/02/2022 at 19:02 Approved by: Alvin Kolb M.D. on 06/02/2022 at 19:06
== END 2022-06-02 20:10 | disposition home or self-care (01) ==
PROVIDERS: Emergency Medicine; Emergency Provider Student in an Organized Health Care Education/Training Program
DX: M25.511 Pain in right shoulder (principal); M62.838 Other muscle spasm
CPT/HCPCS: 36415; 71045; 74176; 80053; 81003; 82550; 83690; 83735; 84484; 85025; 85610; 85730; 93005; 96374; 99284; J1885

== ENCOUNTER → 2023-02-17 15:22 | Outpatient (CLI) | payer BC, SELFPAY ==
--- NOTE | 2023-02-17 | DI.MG.S_ITS ---
BILATERAL DIGITAL SCREENING MAMMOGRAM 3D/2D WITH CAD WITH AUGMENTATION: 02/17/2023 CLINICAL: Routine screening. Comparison is made to exams dated: 12/26/2021 mammogram, 03/13/2020 mammogram, and 01/16/2019 mammogram - [facility]. Both breasts are heterogeneously dense, which may obscure small masses (category c / 51-75% glandular tissue). Current study was also evaluated with a Computer Aided Detection (CAD) system. Bilateral breast implants are stable. There are biopsy clips in the left breast. No significant masses, calcifications, or other findings are seen in either breast. There has been no significant interval change. IMPRESSION: NEGATIVE There is no mammographic evidence of malignancy. A 1 year screening mammogram is recommended. Based on the Tyrer Cuzick model (a risk assessment model) the patient's lifetime risk is 10.3% and her 10 year risk is 4.8%. According to the ACR, ACS, and NCCN guidelines, an annual breast MRI exam along with mammogram is recommended if the patient's lifetime risk is 20% or greater. This exam was interpreted at Station ID: [id number]. NOTE: For mammograms, a report in lay terms will be sent to the patient. Approximately 15% of breast malignancies will not be visualized mammographically. In the management of a palpable breast mass, a negative mammogram must not discourage biopsy of a clinically suspicious lesion. Electronically Signed By: Alvin griffiths/kristine:02/18/2023 10:43:05 letter sent: Normal Exam ACR BI-RADS Category 1: Negative 3341F
== END ==
PROVIDERS: Referring Provider Specialist; Visit Provider Specialist
DX: Z12.31 Encounter for screening mammogram for malignant neoplasm of breast (principal)
CPT/HCPCS: 77063; 77067

== ENCOUNTER → 2023-04-30 10:47 | Outpatient (CLI) | payer BC, SELFPAY ==
[2023-04-30 11:21] LABS: Add Manual Diff / Slide Review NO; Basophils Absolute Auto 100 /uL (0-100); Basophils Percent Auto 1.2 % (0-2); Eosinophils Absolute Auto 100 /uL (0-450); Eosinophils Percent Auto 1.3 % (2-4); Hematocrit 41.2 % (36-46); Hemoglobin 13.9 g/dL (12.0-16.0); Lymphocytes Absolute Auto 1700 /uL (1100-4500); Lymphocytes Percent Auto 36.3 % (25-40); Mean Corpuscular HGB Conc 33.7 % (30-36); Mean Corpuscular Hemoglobin 32.6 PG (26-34); Mean Corpuscular Volume 96.8 fL (80-100); Monocytes Absolute Auto 500 /uL (0-900); Monocytes Percent Auto 9.5 % (3-14); Neutrophils Absolute Auto 2500 /uL (1500-7000); Neutrophils Percent Auto 51.7 % (50-75); Platelet Count 210 X10^3/uL (150-400); Red Blood Cell Count 4.26 X10^6/uL (4.0-5.2); Red Cell Distribution Width 12.1 % (11.6-14.8); White Blood Cell Count 4.8 X10^3/uL (4.5-11.0)
[2023-04-30 11:43] LABS: Alanine Aminotransferase 19 IU/L (<35); Albumin 4.4 g/dL (3.5-5.0); Albumin Globulin Ratio 1.5 (1.0-2.8); Alkaline Phosphatase 44 U/L (38-126); Aspartate Aminotransferase 23 IU/L (14-36); BUN Creatinine Ratio 18.5 (6-22); Bilirubin Total 1.5 mg/dL (0.2-1.3); Blood Urea Nitrogen 15 mg/dL (7-17); Calcium 9.6 mg/dL (8.4-10.2); Carbon Dioxide 30 mmol/L (22-32); Chloride 107 mmol/L (98-107); Cholesterol 213 mg/dL (140-199); Estimated Glomerular Filt Rate > 60 mL/min (>60); Globulin 2.9 g/dL (1.7-4.1); Glucose 94 mg/dL (80-110); HDL Cholesterol 77 mg/dL (40-60); HEMOLYSIS < 15 (0-50); LDL Cholesterol Calculated 120 mg/dL (<100); Potassium 4.6 mmol/L (3.4-5.1); Sodium 141 mmol/L (137-145); Total Protein 7.3 g/dL (6.3-8.2); Triglycerides 78 mg/dL (35-150)
[2023-04-30 12:10] LABS: Vitamin D 25 Hydroxy (D3) 95.2 ng/mL (30.0-100.0)
[2023-04-30 12:14] LABS: TSH w/ Reflex to FT4 1.13 uIU/mL (0.47-4.68)
[2023-04-30 12:27] LABS: Estradiol, Total 14.7 pg/mL
[2023-04-30 12:32] LABS: Vitamin B12 > 1000 pg/mL (239-931)
[2023-05-10 14:47] LABS: Testosterone, Free 1.3 pg/mL (0.0-4.2)
== END ==
LOC: LAB 10:48
PROVIDERS: Referring Provider Physician Assistant Medical; Visit Provider Physician Assistant Medical
DX: Z01.89 Encounter for other specified special examinations (principal); L65.9 Nonscarring hair loss, unspecified; N95.1 Menopausal and female climacteric states
CPT/HCPCS: 36415; 80053; 80061; 82306; 82607; 82670; 84402; 84443; 85025

== ENCOUNTER → 2024-06-02 | Outpatient (CLI) | payer BC, SELFPAY ==
--- NOTE | 2024-06-02 11:09 | DI.MG.S_ITS ---
MM screening mammo implant BI: 06/02/2024. BI-RADS: 2 CLINICAL: 63-year old female for bilateral screening mammogram. Tyrer-Cuzick lifetime risk of 10.8%. No personal or first-degree family history of breast cancer. The patient has bilateral implants. The patient had a prior left breast biopsy. PRIOR EXAMS 02/17/2023, 12/26/2021, 03/13/2020, 01/16/2019, 11/04/2017, 09/07/2016, 08/27/2016, 06/19/2015. MAMMOGRAPHY TECHNIQUE: 2D and 3D (tomosynthesis) digital mammographic views obtained, with additional images as needed for full coverage. Current study was also evaluated with a Computer Aided Detection (CAD) system. DENSITY C. The breasts are heterogeneously dense, which may obscure small masses. IMPLANTS Right: Breast implant present on the right. Left: Breast implant present on the left. MAMMOGRAPHY FINDINGS Right: There are no suspicious masses, calcifications, or other findings in the breast. Left: Biopsy markers present on the left. There are no suspicious masses, calcifications, or other findings in the breast. IMPRESSION: * No evidence of malignancy with benign findings. RECOMMENDATIONS Bilateral * Annual screening mammography. OVERALL ASSESSMENT CATEGORY BI-RADS-2: Benign. The [employer] recommends annual screening mammography beginning at age 40 for women with average risk of breast cancer. ELECTRONICALLY SIGNED: Deisy Villa M.D. on 06/04/2024 at 01:46:48 PM PT Interpreting Station ID: [id number]
== END ==
PROVIDERS: PCP Family Medicine; Referring Provider Family Medicine; Visit Provider Family Medicine
DX: Z12.31 Encounter for screening mammogram for malignant neoplasm of breast (principal); Z98.82 Breast implant status; R92.333 Mammographic heterogeneous density, bilateral breasts
CPT/HCPCS: 77063; 77067

== ENCOUNTER → 2024-08-10 11:37 | Outpatient (CLI) | payer BC, SELFPAY ==
[2024-08-10 12:27] LABS: Add Manual Diff / Slide Review NO; Basophils Absolute Auto 100 /uL (0-100); Eosinophils Absolute Auto 0 /uL (0-450); Eosinophils Percent Auto 0.4 % (2-4); Hematocrit 38.1 % (36-46); Hemoglobin 13.1 g/dL (12.0-16.0); Lymphocytes Absolute Auto 1500 /uL (1100-4500); Mean Corpuscular HGB Conc 34.4 % (30-36); Mean Corpuscular Volume 98.7 fL (80-100); Monocytes Absolute Auto 500 /uL (0-900); Monocytes Percent Auto 9.7 % (3-14); Neutrophils Absolute Auto 3400 /uL (1500-7000); Neutrophils Percent Auto 61.9 % (50-75); Platelet Count 204 X10^3/uL (150-400); Red Blood Cell Count 3.86 X10^6/uL (4.0-5.2); Red Cell Distribution Width 12.4 % (11.6-14.8); White Blood Cell Count 5.6 X10^3/uL (4.5-11.0)
[2024-08-10 12:52] LABS: Erythrocyte Sedimentation Rate 4 MM/HR (0-20)
[2024-08-14 03:41] LABS: Angiotensin Converting Enzyme 20 U/L (14-82)
[2024-08-14 21:11] LABS: Antimyeloperoxidase Antibodies <0.2 units (0.0-0.9); Antiproteinase 3 Antibodies <0.2 units (0.0-0.9); Cytoplasmic C-ANCA <1:20 titer (Neg:<1:20); Perinuclear P-ANCA <1:20 titer (Neg:<1:20)
[2024-08-15 08:09] LABS: ANA Screen, IFA Negative (.)
[2024-08-16 12:09] LABS: HLA B27 Positive (.)
== END ==
PROVIDERS: PCP Family Medicine; Referring Provider Family Medicine; Visit Provider Optometrist
DX: H20.013 Primary iridocyclitis, bilateral (principal); H25.13 Age-related nuclear cataract, bilateral
CPT/HCPCS: 36415; 81374; 82164; 85025; 85651; 86038; 86256

== ENCOUNTER → 2024-10-05 11:00 | Outpatient (CLI) | payer BC, SELFPAY ==
--- NOTE | 2024-10-05 11:01 | DI.RAD.S_ITS ---
PROCEDURE: XR DEXA AXIAL SKELETON INDICATIONS: Post menopausal COMPARISON: None. FINDINGS: Lumbar Spine: Bone mineral density is 0.983 g/cm2, T score -0.3, normal. Left Femoral Neck: Bone mineral density 0.777 g/cm2, T score -0.6, normal. Left Hip: Bone mineral density 0.932 g/cm2, T score -0.1, normal. Fracture Risk Calculation (when applicable): 10-year fracture risk of a major osteoporotic fracture 7.7 percent and of a hip fracture 0.5 percent. FRAX score not valid because all T-scores are at or above -1.0. (T score greater or equal to -1.0 to: NORMAL) (T score from -1.1 to -2.4: OSTEOPENIA) (T score less than or equal to -2.5: OSTEOPOROSIS) IMPRESSION: Normal bone mineral density. Follow-up guidelines as follows: Osteoporosis: Consider a repeat DEXA and Vertebral Fracture Assessment (VFA) exam in 2 years or sooner if medically necessary, to reassess this patient's status. Osteopenia: Consider a repeat DEXA in 2-3 years to reassess this patient's status, or if there is a new clinical indication. Normal: Consider a repeat DEXA in 5 years or sooner, or if there is a new clinical indication. All treatment decisions require clinical judgment and consideration of individual patient factors, including patient preferences, comorbidities, previous drug use, risk factors not captured in the FRAX model (e.g., frailty, falls, vitamin D deficiency, increased bone turnover, interval significant decline in bone density ) and possible under- or over-estimation of fracture risk by FRAX. In addition, the [employer] Guide recommends that FDA-approved medical therapies be considered in postmenopausal women and men age >= 50 years with a: * Hip or vertebral (clinical or morphometric) fracture * T-score of <=-2.5 at the spine or hip * Ten-year fracture probability by FRAX of >= 3% for hip fracture or >=20% for major osteoporotic fracture. Dictated by: Irene Cruz M.D. on 10/05/2024 at 13:30 Approved by: Irene Cruz M.D. on 10/05/2024 at 13:30
== END ==
LOC: RAD 11:01
PROVIDERS: PCP Family Medicine; Referring Provider Physician Assistant; Visit Provider Physician Assistant
DX: Z78.0 Asymptomatic menopausal state (principal)
CPT/HCPCS: 77080

== ENCOUNTER → 2024-10-05 11:02 | Outpatient (CLI) | payer BC, SELFPAY ==
--- NOTE | 2024-10-05 11:06 | DI.RAD.S_ITS ---
PROCEDURE: XR LUMBAR SPINE 2-3V INDICATIONS: LOW BACK PAIN TECHNIQUE: 3 views of the lumbar spine were acquired. COMPARISON: None. FINDINGS: Bones: Five [id number] vertebrae are present. Mild levoscoliosis and slight lateral L4-5 subluxation. Trace retrolisthesis L3-4. Severe disc height loss L3-4 and L4-5. Mild endplate sclerosis and endplate spurs. Moderate facet arthropathy L4-5 through L5-S1. No vertebral body compression fractures. No suspicious bony lesions. Soft tissues: Overlying bowel gas pattern is normal. No suspicious soft tissue calcifications. IMPRESSION: Chronic appearing disc, endplate, and facet joint degeneration, most prominent at L4-5. Dictated by: Irene Cruz M.D. on 10/05/2024 at 13:34 Approved by: Irene Cruz M.D. on 10/05/2024 at 13:35
--- NOTE | 2024-10-05 11:06 | DI.RAD.S_ITS ---
PROCEDURE: XR PELVIS 1-2V INDICATIONS: LOW BACK PAIN TECHNIQUE: One view(s) of the pelvis acquired. COMPARISON: [facility], , XR PELVIS 1-2V, 01/21/2021, 15:19. FINDINGS: Bones: Normal mineralization. No suspicious osseous lesions or fractures. Normal hip joint alignment. No erosive changes. Mild degeneration in the lower lumbar spine. Soft tissues: Visualized bowel gas pattern is normal. No suspicious soft tissue calcifications. IMPRESSION: Mild lower lumbar degeneration. No bony pelvic abnormality. Dictated by: Irene Cruz M.D. on 10/05/2024 at 13:31 Approved by: Irene Cruz M.D. on 10/05/2024 at 13:34
[2024-10-05 13:19] LABS: Hep C Virus Ab w/Reflex Quant NEGATIVE s/c (NEGATIVE)
[2024-10-06 15:08] LABS: Alanine Aminotransferase 17 IU/L (<35); Albumin 4.4 g/dL (3.5-5.0); Albumin Globulin Ratio 1.5 (1.0-2.8); Alkaline Phosphatase 49 U/L (38-126); Blood Urea Nitrogen 16 mg/dL (7-17); Calcium 9.2 mg/dL (8.4-10.2); Carbon Dioxide 26 mmol/L (22-32); Chloride 104 mmol/L (98-107); Estimated Glomerular Filt Rate > 60 mL/min (>60); Globulin 2.9 g/dL (1.7-4.1); Glucose 101 mg/dL (70-99); HEMOLYSIS < 15 (0-50); Potassium 4.2 mmol/L (3.4-5.1); Sodium 138 mmol/L (137-145); Total Protein 7.3 g/dL (6.3-8.2)
[2024-10-06 18:30] LABS: Hepatitis B Surface Antigen NEGATIVE s/c (NEGATIVE)
[2024-10-08 14:36] LABS: QuantiFERON Mitogen Value >10.00 IU/mL (.); QuantiFERON Nil Value 0.09 IU/mL (.); QuantiFERON TB Gold Plus Negative (Negative); QuantiFERON TB1 Ag Value 0.09 IU/mL (.); QuantiFERON TB2 Ag Value 0.09 IU/mL (.)
== END ==
PROVIDERS: PCP Family Medicine; Referring Provider Internal Medicine Rheumatology; Visit Provider Internal Medicine Rheumatology
DX: H20.00 Unspecified acute and subacute iridocyclitis (principal); M54.50 Low back pain, unspecified; Z78.0 Asymptomatic menopausal state; M47.816 Spondylosis without myelopathy or radiculopathy, lumbar region
CPT/HCPCS: 36415; 72100; 72170; 77080; 80053; 85651; 86140; 86480; 86803; 87340